=== PATIENT | female | born 1975 | race Caucasian/White ===

== ENCOUNTER 2019-06-22 13:31 | Emergency (ER) | payer OTHER ==
[~2019-06-22] VITALS: Ht 170.2 cm; Wt 76.2 kg
--- NOTE | 2019-06-22 13:55 | NUR ---
BURN TO INNER THIGH, ABDOMEN, AND R WRIST FROM OIL AND WATER WHILE COOKING. PT IN A LOT OF PAIN, 10/10, CRYING AND VERY RESTLESS. UNABLE TO FIND COMFORTABLE POSITIONING. SHE IS AOX4, SLIGHTLY TACHYCARDIC AND HYPERTENSIVE, RR EVEN AND UNLABORED ON RA. NO OTHER MEDICAL COMPLAINTS AT THIS TIME. READY FOR EVAL.
[2019-06-22] MEDS ORDERED: ONDANSETRON HCL/PF 4 MG/2 ML VIAL ONE (14:00)
[2019-06-22] MEDS ORDERED: MORPHINE SULFATE INJ 2 MG/ML DISP.SYRIN ONE ×3 (14:01→16:39)
[2019-06-22 14:14] LABS: BASOPHILS # (AUTO) 0.1 /CMM (0.0-0.2); BASOPHILS % (AUTO) 0.7 % (0.0-2.0); EOSINOPHILS % (AUTO) 1.2 % (0.0-6.0); HEMATOCRIT 38 % (33-45); HEMOGLOBIN 13.1 g/dL (11.5-14.8); LYMPHOCYTES # (AUTO) 2.3 /CMM (0.8-4.8); LYMPHOCYTES % (AUTO) 19.8 % (20.0-44.0); MEAN CORPUSCULAR HGB CONC 34 g/dl (31.0-36.0); MEAN CORPUSCULAR VOLUME 92 fL (82-100); MONOCYTES # (AUTO) 0.9 /CMM (0.1-1.30); MONOCYTES % (AUTO) 7.2 % (2.0-12.0); NEUTROPHILS # (AUTO) 8.4 /CMM (1.8-8.9); NEUTROPHILS % (AUTO) 71.1 % (43.0-81.0); PLATELET COUNT (AUTO) 395 /CMM (150-450); RED BLOOD CELL COUNT(AUTO) 4.18 MIL/uL (4.0-5.2); WHITE BLOOD COUNT (AUTO) 11.8 K/uL (4.3-11.0)
[2019-06-22] MEDS: ONDANSETRON HCL/PF 4 MG/2 ML VIAL IVP ONE ×2 (14:15→14:16)
[2019-06-22] MEDS: MORPHINE SULFATE INJ 2 MG/ML DISP.SYRIN IV ONE ×2 (14:15→14:17)
[2019-06-22] MEDS: IV NS 0.9% 1,000 ML BAG IV ONE ×2 (14:15→14:21)
[2019-06-22] MEDS ORDERED: MORPHINE SULFATE INJ 2 MG/ML DISP.SYRIN IV ONE ×2 (14:30→16:30)
[2019-06-22 14:43] LABS: CALCIUM, SERUM 9.1 mg/dL (8.5-10.1); CREATININE 0.5 mg/dL (0.6-1.3)
--- NOTE | 2019-06-22 15:31 | NUR ---
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
--- NOTE | 2019-06-22 15:50 | NUR ---
[facility] ARRANGED #[id number]
[2019-06-22 16:12] VITALS: BP 146/82
--- NOTE | 2019-06-22 16:15 | NUR ---
PT STILL COMPLAINING OF PAIN. PA NOTIFIED.
--- NOTE | 2019-06-22 16:54 | NUR ---
REPORT GIVEN TO [facility] UN[id number]
--- NOTE | 2019-06-22 17:05 | NUR ---
MADE 3 ATTEMPTS TO CONTACT [facility] FOR REPORT. UNSUCCESSFUL.
== END 2019-06-22 17:15 | disposition short-term general hospital (02) ==
LOC: ER 13:31
DX: O9A.212 Injury, poisoning and certain other consequences of external causes complicating pregnancy, second trimester (principal); T24.012A Burn of unspecified degree of left thigh, initial encounter; T24.011A Burn of unspecified degree of right thigh, initial encounter; T21.02XA Burn of unspecified degree of abdominal wall, initial encounter; T23.071A Burn of unspecified degree of right wrist, initial encounter; T31.22 Burns involving 20-29% of body surface with 20-29% third degree burns; Z3A.20 20 weeks gestation of pregnancy; X10.2XXA Contact with fats and cooking oils, initial encounter; Y93.G3 Activity, cooking and baking; Y92.89 Other specified places as the place of occurrence of the external cause; Y99.8 Other external cause status
CPT/HCPCS: 36415; 76805; 80048; 85025; 85730; 96374; 96375; 96376; 99285; A6403 ×2; J2270 ×3; J2405; J7030